=== PATIENT | male | born 1980 | race Caucasian/White ===

== ENCOUNTER 2022-01-18 13:05 | Emergency (ER) | payer OTHER ==
[~2022-01-18] VITALS: Ht 177.8 cm; Wt 88.4 kg
[2022-01-18] MEDS ORDERED: CEPH500C PO (13:41)
--- NOTE | 2022-01-18 13:42 | PHYS DOC ---
Past History Past Medical History: No Pertinent History (PRAVIN DAMON DO) Past Surgical History: No Surgical History (PRAVIN DAMON DO) Smoking: Non-smoker Alcohol Use: None Drug Use: None (PRAVIN DAMON DO) General Adult EDM: Chief Complaint: CELLULITIS HPI: HPI: Patient is a 41-year-old male who presents to the emergency department for possible skin infection. Patient reports that 10 days ago he got a tattoo to his right forearm and over the last couple of days he has noticed redness warmth and swelling surrounding tattoo. Patient denies fevers, nausea or vomiting. (GREGORIA BARRERA APRN) Review of Systems: Review of Systems: Constitutional: See HPI GI: See HPI Musculoskeletal: Reports pain to right forearm Integument: See HPI Neurologic: Denies decreased sensation to right forearm (GREGORIA BARRERA APRN) Allergies: Allergies: Allergies Coded Allergies Type Severity Reaction Last Updated Verified No Known Drug Allergies 01/18/22 No (GREGORIA BARRERA APRN) Physical Exam: PE: Constitutional: Well developed, well nourished, no acute distress, non-toxic appearance. [] HENT: Normocephalic, atraumatic, bilateral external ears normal, oropharynx moist, no oral exudates, nose normal. [] Eyes: PERRL, EOMI, conjunctiva normal, no discharge. [] Neck: Normal range of motion, no stridor Cardiovascular: Peripheral perfusion Lungs & Thorax: Normal work of breathing, no tachypnea Abdomen: Soft and flat Skin: Warm, dry, right forearm: Tattoo noted to right forearm with crusting and redness, swelling and warmth surrounding area. Back: No tenderness, full range of motion Extremities: No tenderness, no cyanosis, no clubbing, ROM intact, no edema. [] Right upper extremity/forearm: Range of motion intact, neuro intact Neurologic: Alert and oriented X 3, normal motor function, normal sensory function, no focal deficits noted. [] Psychologic: Affect normal, judgement normal, mood normal. [] (GREGORIA BARRERA APRN) EKG: EKG: [] (GREGORIA BARRERA APRN) Radiology/Procedures: Radiology/Procedures: [] (GREGORIA BARRERA APRN) Heart Score: C/O Chest Pain: N/A Risk Factors: Risk Factors: DM, Current or recent (<one month) smoker, HTN, HLP, family history of CAD, obesity. Risk Scores: Score 0 - 3: 2.5% MACE over next 6 weeks - Discharge Home Score 4 - 6: 20.3% MACE over next 6 weeks - Admit for Clinical Observation Score 7 - 10: 72.7% MACE over next 6 weeks - Early Invasive Strategies (GREGORIA BRARERA APRN) Course & Med Decision Making: Course & Med Decision Making Pertinent Labs and Imaging studies reviewed. (See chart for details) [] Patient resents to the emergency department for a skin infection surrounding tattoo. Patient will be discharged home with an antibiotic. He is advised to keep clean and dry. Advised take Tylenol and ibuprofen for pain. He is neurovascularly intact. I discussed with patient all findings and diagnostic testing as well as the need to follow-up with PCP for further evaluation and treatment or return to the ER if any new or worsening symptoms. Strict return precautions were also discussed at length. Patient voiced understanding and agr eement with the plan. Patient is hemodynamically stable at the time of disposition. (GREGORIA BARRERA APRN) Dragon Disclaimer: Dragon Disclaimer: This electronic medical record was generated, in whole or in part, using a voice recognition dictation system. (GREGORIA BARRERA APRN) Departure Departure: Impression: Primary Impression: Cellulitis Qualified Codes: L03.113 - Cellulitis of right upper limb Disposition: HOME / SELF CARE / HOMELESS Condition: GOOD Referrals: PCP,UNKNOWN (PCP) Patient Instructions: Cellulitis Additional Instructions: You are seen in the emergency department for a skin infection which be treated w ith an antibiotic. Please start and finish the antibiotic completely. You take Tylenol and ibuprofen for your pain. Please keep your forearm clean and dry and wash with mild soap and warm water. Follow-up with your primary care provider within 2 days for wound recheck. Return to the emergency department if you develop worsening of the infection as evidenced by increased redness, warmth, swelling or drainage, increased pain with decreased range of motion or decreased sensation to your extremity. Scripts Cephalexin (KEFLEX) 500 Mg Capsule 1 CAP PO QID for CELLULITIS for 7 Days, #28 CAP 0 Refills Prov: GREGORIA BARRERA APRN 01/18/22 Attending Signature Attending Signature I have reviewed the PA/PERSONAL CONSULTANT's note and plan of care. I was available for consultation as needed during the patient's visit in the emergency department. I agree with the clinical impression, plan, and disposition. (PRAVIN DAMON DO) GREGORIA BARRERA [employer] Jan 18, 2022 13:42 PRAVIN DAMON DO Jan 19, 2022 10:45
[2022-01-18 13:55] VITALS: BP 111/81
== END 2022-01-18 13:57 | disposition home or self-care (01) ==
LOC: ER 13:05
DX: L03.113 Cellulitis of right upper limb (principal)
CPT/HCPCS: 99283